=== PATIENT | female | born 2000 | race Caucasian/White ===

== ENCOUNTER 2024-06-01 16:02 | Outpatient (CLI) | payer OTHER, SELFPAY ==
--- NOTE | ~2024-06-01 | US_ITS ---
EXAMINATION: US pelvic complete w TV DATE: 06/01/2024 16:20 INDICATION: Left lower quadrant abdominal pain. TECHNIQUE: Multiple transabdominal and transvaginal sonographic images of the pelvis were obtained. COMPARISON: None. FINDINGS: TRANSABDOMINAL ULTRASOUND: The uterus measures 7.5 x 3.3 x 4.1 cm. There is no free fluid in the pelvis. TRANSVAGINAL ULTRASOUND: The endometrial complex measures 3 mm in thickness. The right ovary measures 4.8 x 2.1 x 2.5 cm. The left ovary measures 5.8 x 5.9 x 7.2 cm. There is a 6.2 cm cyst in the left ovary. There is normal vas cular flow in the ovaries. IMPRESSION: 1. 6.2 cm cyst in the left ovary, likely benign. Consider pelvis ultrasound in 6-12 months. Reviewed, dictated and finalized at location A. NING ENGINEER
== END 2024-06-01 16:03 | disposition home or self-care (01) ==
LOC: MICIMG 16:03
PROVIDERS: PCP Obstetrics & Gynecology; Visit Provider Obstetrics & Gynecology
DX: R10.2 Pelvic and perineal pain (principal); N83.202 Unspecified ovarian cyst, left side
CPT/HCPCS: 76830; 76856

== ENCOUNTER 2024-07-11 16:00 | Outpatient (CLI) | payer OTHER, SELFPAY ==
--- NOTE | ~2024-07-11 | US_ITS ---
Pelvic ultrasound. Clinical History: Pelvic pain Technique: Realtime transabdominal and transvaginal scanning of the pelvis was performed. Color flow Doppler and Doppler spectral analysis were performed. Findings: The uterus is anteverted. The endometrial stripe has a thickness of 5 mm. No focal mass is identified. The right ovary measures 4.4 x 5.3 x 4.9 cm. Right ovarian cyst measures 3.9 cm in diameter. The left ovary measures 3.3 x 3.0 x 2.1 cm. Left ovarian cyst measures 2.1 cm in diameter. There is no evidence of free fluid in the cul de sac. Impression: 3.9 cm right ovarian cyst. Reviewed, dictated and finalized at location M. Impression: 3.9 cm right ovarian cyst.
== END 2024-07-11 16:01 | disposition home or self-care (01) ==
LOC: MICIMG 16:01
PROVIDERS: PCP Obstetrics & Gynecology; Visit Provider Obstetrics & Gynecology
DX: R10.2 Pelvic and perineal pain (principal); N83.201 Unspecified ovarian cyst, right side
CPT/HCPCS: 76830; 76856

== ENCOUNTER 2024-08-28 07:54 | Outpatient (CLI) | payer OTHER, SELFPAY ==
--- NOTE | ~2024-08-28 | US_ITS ---
EXAMINATION: US pelvic complete w TV INDICATION: Ovarian cyst follow-up Comparison:Ultrasound dated 07/11/2024 TECHNIQUE: Multiple transabdominal and endovaginal sonographic images of the pelvis performed. FINDINGS: The uterus measures 7.1 x 3.1 x 4.1 cm. The endometrial complex measures 3 mm. The right ovary measures 4.3 x 2.9 x 2.4 cm and the left ovary measures 3.5 x 3 x 3 cm. There are sm all follicles in each ovary. Normal doppler signal in both ovaries. Interval resolution of right ovar tatum cyst. There is no free fluid in the pelvis. There are no abnormal masses seen on either side. IMPRESSION: 1. Normal pelvic ultrasound. Reviewed, dictated and finalized at location A.
== END 2024-08-28 07:55 | disposition home or self-care (01) ==
PROVIDERS: PCP Obstetrics & Gynecology; Visit Provider Obstetrics & Gynecology
DX: N83.209 Unspecified ovarian cyst, unspecified side (principal); R10.2 Pelvic and perineal pain
CPT/HCPCS: 76830; 76856

== ENCOUNTER 2025-01-29 07:51 | Outpatient (CLI) | payer OTHER, SELFPAY ==
--- OUTSIDE RECORDS SUMMARY | 2025-01-29 07:56 | XMS_ITS | Clinical Summary ---
Author Organization [facility] Address [address] [place] [address] Care Team Providers Care Rental Car Deliverer Name Role Phone Gloria Hu MD Unavailable [phone] Fatoumata Salazar MD Primary Care Provide r Allergies No known active allergies Medications busPIRone (BUSPAR) 5 mg tablet Take 2 tablets (10 mg total) by mouth 3 (three) times a day 540 tablet 1 08/15/2023 Active Active Problems Problem Noted Date Diagnosed Date Swollen lymph nodes 04/11/2024 Assessment & Plan (04/11/2024 8:28 AM RADIO PRODUCER): New concern Not at goal Cervical Likely infections but will get Cbc cmp [place] test evaluate for EBV F/u in 1 month, will consider ct scan and biopsy in the future if still present Chronic suppurative otitis media of left ear Assessment & Plan (04/11/2024 8:28 AM RADIO PRODUCER): New concern Start amoxicillin 500mg tid for 7 days F/u if no improvement BMI 28.0-28.9,adult 08/15/2023 Eustachian tube dysfunction, right 03/09/2023 Assessment & Plan (03/09/2023 7:59 AM RADIO PRODUCER): Acute problem- this is a new problem Encouraged to take Cassy 180 mg daily Encouraged to use Flonase 50 mcg- 2 sprays each nostril nightly Stay hydrated Sleep with hob slightly elevated Avoid excess water and hair products in ears Avoid cleaning ears with q-tips or other objects Plan to consult ENT if no improvement Follow up with pcp as scheduled sooner prn Other fatigue 03/09/2023 Assessment & Plan (03/09/2023 9:01 AM RADIO PRODUCER): Acute on chronic problem-onset 4 weeks ago-poorly controlled, no improvement after being treated with Abx 4 weeks ago Rest Stay hydrated Ordered mono screen Ordered covid, flu a/b POC-negative results Encouraged to follow healthy diet and exercise regimen Continue to monitor Plan to order blood work if no improvement Anxiety 05/20/2022 Assessment & Plan (08/15/2023 11:15 AM CDT): Not at goal Increase buspar to 10mg tid F/u in 6 weeks for monitoring Assessment & Plan (08/12/2022 10:21 PM CDT): Stable Continue buspar 5mg tid F/u prn Assessment & Plan (06/21/2022 4:34 PM CDT): Stable Continue buspar 5mg tid F/u at annual visit Assessment & Plan (05/21/2022 12:06 PM RADIO PRODUCER): Acute, new, worsening PANFILO 7 score of 11 She looked into therapy but currently does not have time for it Start buspar 5mg daily, increase to twice a day after a week, can go up to 3x/day afterwards F/u in 1 month. If no improvement will increase the dose Discussed risks, side effects, and benefits of medication Encounter for wellness examination 06/29/2021 Assessment & Plan (08/15/2023 11:05 AM CDT): Ordered CBC, bmp, lipid Pap smear: follows with ob F/u in 1 year for annual Assessment & Plan (08/13/2022 11:10 AM CDT): Ordered CBC, bmp, lipid Pap smear: has appointment with ob F/u in 1 year for annual Assessment & Plan (06/29/2021 9:33 AM CDT): Ordered CBC, bmp, lipid, gc chlamydia, HIV, hep c, TSH, and free t4 F/u in 1 year for annual Resolved Problems Problem Noted Date Diagnosed Date Resolved Date Gastroenteritis 07/20/2023 08/12/2023 Assessment & Plan (07/20/2023 2:32 PM CDT): New concern Not at goal Recommend clear liquids then advance to soft diet and then regular diet If no improvement by Tuesday will consider stool culture at that time. She will call with update CT of the abdomen as above F/u prn Pharyngitis 03/09/2023 08/12/2023 Assessment & Plan (03/09/2023 9:02 AM RADIO PRODUCER): Acute problem-this is a new problem- this is more than likely related to postnasal drip and recent otitis media with URI 4 weeks ago Ordered [place] screen Ordered Amoxicillin 875 mg bid Ordered covid, flu a/b POC-negative results Warm salt water gargles 3 to 4 times a day Stay hydrated Continue with OTC Tylenol and Ibuprofen for discomfort Continue to monitor Cough 09/24/2021 08/15/2023 Assessment & Plan (09/24/2021 12:00 PM CDT): Likely from postnasal drip, sinus congestion, and allergies Recommend Flonase at night daily for least a week Cassy daily and saline rinse Tessalon Perles Given it has been going on for about a month I will get a checks x-ray Follow-up in 2 weeks. If no improvement will consider Medrol Dosepak Encounter for completion of form with patient 06/30/1908/15/2023 Assessment & Plan (06/29/2021 9:40 AM CDT): Needs forms completed for school Encounter for PPD test 06/29/202108/14 Assessment & Plan (06/29/2021 9:41 AM CDT): Needs ppd test for school Acute bacterial tonsillitis 05/05/2015 04/12/2017 Overview (07/08/2016): Acute bacterial tonsillitis Immunizations Immunization Administration Dates Next Due DTaP, Unspecified 10/08/2005, 2,2000,06/30,2000 HPV, Quadrivalent 11/03/2011 Hep A, Unspecified 11/04/2010,10/07/2009 Hep B, Unspecified 2000,2000, 000 HiB 06/07/2001, 1,2000,05/02 Influenza, Quadrivalent, Deborah l Culture-based MDCK, Preservative Free, Antibiotic Free, Intramuscular 01/05/2023,01/08/2022 Influenza, Quadrivalent, Spl it, Preservative Free, Intramuscular 02/01/2019 Influenza, Trivalent, Preser vative Free, Intramuscular 01/23/2024,03/22/2016 Influenza, Unspecified 01/05/2023,12/26/2021,03/2021 MMR 10/08/2005,06/07/2001 Meningococcal Conjugate (Menveo) 11/01/2016 Meningococcal MCV4P (Menactra) 11/03/2011 PPD TEST 08/09/2022,07/15/2021 Pneumococcal Conjugate PCV 13 03/13/2002 Polio, Unspecified 10/08/2005, 2,2000,05/02 Tdap 09/15/2022,11/04/2010 Varicella 10/07/2009,02/28/2001 Surgical History Surgery Date Site/Laterality Comments NO PAST SURGERIES WISDOM TOOTH EXTRACTION Medical History Medical History Date Comments Healthy female adolescent Anxiety Family History Medical History Relation Name Comments Hypertension Father Vahe Hendrix Diabetes Maternal Grandfather Gene Vipin Heart attack Maternal Grandfather Gene Bruggemann Hypertension Maternal Grandfather Gene Bruggemann Ovarian cancer Maternal Grandmother COD a t age 53 Lung cancer Paternal Grandmother COD Relation Name Status Comments Father Vahe Hendrix Maternal Grandfather Yared Lew Maternal Grandmother Paternal Grandmother Other Social History Tobacco Use Types Packs/Day Years Used Date Smoking Tobacco: Never Cigarettes Smokeless Tobacco: Never Tobacco Cessation:Counseling Given: Not Answered Alcohol Use Standard Drinks/Week Comments No 0 (1 standard drink = 0.6 oz pur e alcohol) AUDIT-C Answer Date Recorded Q1: How often do you have a drink containing alc ohol? Monthly or less 06/29/2021 Q2: How many drinks containi ng alcohol do you have on a typical day when you are drinking? 3 or 4 06/29/2021 Q3: How often do you have si x or more drinks on one occasion? Less than monthly 06/29/2021 PHQ-2 Answer Date Recorded PHQ-2 Total Score (If total score is 3 or more points, staff should administer the PHQ-9) 0 08/15/2023 Personal Safety Answer Date Recorded Have you ever been in or are you currently in a harmful physical or emotional relationship or is someone making you feel afraid or unsafe? Denies 07/19/2023 Comments No Sex and Gender Information Value Date Recorded Sex Assigned at Not on file Legal Sex Female 9:34 AM RADIO PRODUCER Gender Identity Not on file Sexual Orientation Straight 09/20/2021 3: 43 PM CDT Occupation Industry Job Start Date Job End Date student Not on file Not on file Not on file Obstetrics History Para Term AB IAB SAB Ectopic Multiple Livin g Live Births 0 0 0 0 0 0 0 0 0 0 0 Last Filed Vital Signs Vital Sign Reading Time Taken Comments Blood Pressure 118/62 04/11/2024 8:05 AM RADIO PRODUCER Pulse 101 04/11/2024 8:05 AM RADIO PRODUCER Temperature 36.8 C (98.2 F) 04/11/2024 8:05 AM RADIO PRODUCER Respiratory Rate 16 04/11/2024 8:05 AM RADIO PRODUCER Oxygen Saturation 99% 04/11/2024 8:05 AM RADIO PRODUCER Inhaled Oxygen Concentration - - Weight 85.3 kg (188 lb) 04/11/2024 8:05 AM RADIO PRODUCER Height 172.7 cm (5' 8) 04/11/2024 8:05 AM RADIO PRODUCER Body Mass Index 28.59 04/11/2024 8:05 AM RADIO PRODUCER Plan of Treatment Health Maintenance Due Date Last Done Comments Cervical Cancer Screening 2000 HPV Vaccines (2 - 2-dose series) 05/05/2012 11/03/19 12 Depression Screening 08/14/2024 08/15/2023, 07/20/2023, 03/09/2023, Additional history exists Regular Well Visit/Exam 18-64 08/14/2024, 08/13/2022, 06/29/2021 Covid-19 Vaccine (3 - 2024-2 6 season) 2024 04/22/2020, 04/01/2020 Influenza Vaccine (#1) 2024 , 01/05/2023, 01/05/2023, Additional history exists DTaP/Tdap/Td Vaccine (8 - Td or Tdap) 09/15/2032 09/15/2022, 11/04/2010, 10/08/2005, Additional history exists Hepatitis B Screening Completed 2000 , 2000, 2000 Pneumococcal vaccine <65 Completed 03/13/2002 Varicella Vaccines Completed 10/07/2009, 02/28/2001 Hepatitis C Screening Completed 07/02/2021 Procedures Procedure Name Priority Date/Time Associated Diagnosis Comments HEPATITIS C ANTIBODY Routine 07/02/2021 10:04 AM CDT Preventative health care from Last 3 Months or Most Recently Relevant to Health Maintenance Results * Hepatitis C antibody (07/02/2021 10:04 AM CDT) Hep C Ab Nonreactive Nonreactive [facility] ([facility]) Comment: Interpretive Data Nonreactive: Antibodies to HCV not detected. Does NOT exclude the possibility of recent exposure to HCV. Equivocal: Equivocal for HCV antibodies. Supplemental molecular testing will be automatically performed to determine infection status in accordance with current CDC screening recommendations. Reactive: Positive for HCV antibodies. This may represent current or past HCV infection. Supplemental molecular testing will be automatically performed to determine current infection status in accordance with current CDC screening recommendations. Interpretive data was last revised on 2019. Testing performed by: [facility], [address] [place] [address], [place]., [address] Blood 07/02/2021 10:0 4 AM CDT 07/02/2021 2:04 PM CDT Narrative [facility] ([facility]) - 07/02/2021 3:25 PM CDT fasting Fatoumata Salazar MD LAB MICROBIOL OGY - GENERAL ORDERABLES Edited Result - Final [facility]) [facility] Department [place] [address] from Last 3 Months or Most Recently Relevant to Health Maintenance Insurance [employer] [facility] [facility] [employer] Address: [address] [place] [address] [facility] [employer] [facility] [employer] Address: [facility] [id number] [place] [address] Care Teams Rental Car Deliverer Relationship Specialty Start Date End Date Fatoumata Salazar MD [address] [place] [address] PCP - General Family Medicine 06/29/21 Gloria Hu MD [address] [place] [address] Obstetrics and Gynecology 09/29/16
[2025-01-29 08:20] LABS: Hematocrit 40.4 % (37.0-47.0); Hemoglobin 13.5 g/dL (12.0-15.0); Immature Granulocyte Percent A 0.4 % (0-0.5); Lymphocytes Absolute Auto 2.24 K/mm3 (0.9-3.2); Mean Corpuscular HGB Conc 33.4 g/dl (32-36); Mean Corpuscular Hemoglobin 29.4 pg (26-34); Mean Corpuscular Volume 88.0 fl (80-100); Nucleated Red Blood Cells Absolute Auto 0.000 K/mm3 (0.0-0.012); Nucleated Red Blood Cells Perc 0.0 % (0.0-0.2); Platelet Count Result 224 k/mm3 (150-375); Red Blood Count 4.59 M/mm3 (4.2-5.4); White Blood Count 5.3 K/mm3 (4.5-10.0)
[2025-01-29 08:54] LABS: Alanine Aminotransferase 22 U/L (6-35); Albumin Level 4.6 g/dL (3.5-5.1); Alkaline Phosphatase 46 U/L (38-126); Anion Gap 8 mmol/L (4-12); Aspartate Amino Transferase 25 U/L (14-36); Bilirubin,Total 0.3 mg/dL (0.2-1.3); Blood Urea Nitrogen 14 mg/dL (7-17); Calcium 8.9 mg/dL (8.4-10.2); Carbon Dioxide 26 mmol/L (22-30); Chloride 105 mmol/L (98-107); Cholesterol 184 mg/dL (0-200); Estimated Glomerular Filt Rate > 60; Glucose 87 mg/dL (65-110); HDL Direct 78 mg/dL; Potassium 4.5 mmol/L (3.4-5.0); Sodium 139 mmol/L (137-145); Total Protein 7.5 g/dL (6.3-8.2); Triglycerides 59 mg/dL (<150)
[2025-01-29 09:03] LABS: Thyroid Stimulating Hormone Reflex 1.480 uIU/mL (0.465-4.68)
== END 2025-01-29 07:52 | disposition home or self-care (01) ==
LOC: ANHLAB 07:52
PROVIDERS: PCP Family Medicine
DX: E66.3 Overweight (principal); Z13.220 Encounter for screening for lipoid disorders
CPT/HCPCS: 36415; 80053; 80061; 84443; 85025